=== PATIENT | male | born 1955 | race Caucasian/White ===

== ENCOUNTER 2016-06-16 05:43 | Day surgery (SDC) | payer OTHER ==
--- NOTE | ~2016-06-16 | EGD ---
EGD REPORT [facility] [address] [address] NAME: LC DEVINE : 53 STATUS : REG [facility]#: [id number] AGE: 61 ADM/REG DATE : 06/16/16 MR#: [id number] REPORT SERV DATE: 06/16/16 DICTATED BY: JERO AMATO DATE: 06/16/16 REPORT STATUS : Draft [facility]ANS[facility]IBED BY: [facility] DATE: 06/16/16 [facility] Center Patient Name: Lc Devine Date of : 1955 Attending MD: JERO AMATO, Procedure Date No Time: 06/16/2016 Procedure: Colonoscopy Indications: Screening for colorectal malignant neoplasm Referring MD: MILA FLETCHER Medicines: Monitored Anesthesia Care Complications: No immediate complications. Estimated blood loss: None. Procedure: Pre-Anesthesia Assessment: - ASA Grade Assessment: II - A patient with mild systemic disease. After I obtained informed consent, the scope was passed under direct vision. Throughout the procedure, the patient's blood pressure, pulse, and oxygen saturations were monitored continuously. The CF [id number] was introduced through the anus and advanced to the cecum, identified by appendiceal orifice and ileocecal valve. The colonoscopy was performed without difficulty. The patient tolerated the procedure well. The quality of the bowel preparation was good. The ileocecal valve, appendiceal orifice and rectum were photographed. Findings: The perianal and digital rectal examinations were normal. A sessile polyp was found in the proximal transverse colon. The polyp was 10 mm in size. The polyp was removed with a hot snare. Resection and retrieval were complete. Verification of patient identification for the specimen was done. Estimated blood loss was minimal. Internal hemorrhoids were found during retroflexion and were Grade II (internal hemorrhoids that prolapse but reduce spontaneously). The exam was otherwise without abnormality on direct and retroflexion views. Impression: - One 10 mm polyp in the proximal transverse colon. Resected and retrieved. - Internal hemorrhoids. - The examination was otherwise normal on direct and retroflexion views. Recommendation: - Patient has a contact number available for emergencies. The signs and symptoms of potential delayed complications were discussed with the patient. Return to EGD REPORT [address] [address] NAME: LC DEVINE : 53 STATUS : REG [facility] PAT#: [id number] AGE: 61 ADM/REG DATE : 06/16/16 MR#: [id number] REPORT SERV DATE: 06/16/16 DICTATED BY: JERO AMATO DATE: 06/16/16 REPORT STATUS : Draft TRANSCRIBED BY: [employer] DATE: 06/16/16 normal activities tomorrow. Written discharge instructions were provided to the patient. - Return to previous diet. - Await pathology results. - Continue present medications. Procedure Code(s): --- Professional --- 16770, Colonoscopy, flexible, proximal to splenic flexure; with removal of tumor(s), polyp(s), or other lesion(s) by snare technique Diagnosis Code(s): --- Professional --- D12.3, Benign neoplasm of transverse colon K64.1, Second degree hemorrhoids Z12.11, Encounter for screening for malignant neoplasm of colon CPT copyright 2013 [employer]. All rights reserved. The codes documented in this report are preliminary and upon medical biller coder review may be revised to meet current compliance requirements. JERO AMATO, 06/16/2016 7:29 AM Number of Addenda: 0 Note Initiated On: 06/16/2016 6:53 AM Scope Withdrawal Time 0 hours 8 minutes 23 seconds [id number] [place], [place] [id number]
[~2016-06-16 05:43] MED LIST: ACET500CAP PO; ASAB PO; CYANO1000T PO; FISH-EPA1000 MG PO; FLEX PO; GLUCOPHAGE1000 MG PO; ZESTORETIC1 TAB PO
== END 2016-06-16 23:59 | disposition home or self-care (01) ==
LOC: DMU 05:43
PROVIDERS: Internal Medicine Gastroenterology
PROC: 0DBL8ZX Excision of Transverse Colon, Via Natural or Artificial Opening Endoscopic, Diagnostic (ICD-10-PCS; principal; 2016-06-16 07:00)
DX: Z12.11 Encounter for screening for malignant neoplasm of colon (principal); D12.3 Benign neoplasm of transverse colon; K64.1 Second degree hemorrhoids; E78.00 Pure hypercholesterolemia, unspecified; E11.9 Type 2 diabetes mellitus without complications; I10 Essential (primary) hypertension; Z79.899 Other long term (current) drug therapy; Z98.890 Other specified postprocedural states
CPT/HCPCS: 82962; 88305